=== PATIENT | female | born 1995 | race Caucasian/White ===

== ENCOUNTER 2019-05-12 09:43 | Emergency (ER) | payer OTHER, BC ==
[~2019-05-12] VITALS: Ht 149.9 cm; Wt 59.0 kg
--- NOTE | 2019-05-12 09:54 | NUR ---
Patient ambulated to bed 9. RN evaluating patient at bedside.
[2019-05-12 09:55] VITALS: BP 222/127
[2019-05-12 10:00] VITALS: BP 131/85
--- NOTE | 2019-05-12 10:00 | NUR ---
bib self. aao x4 c/o sudden onset of calf pain---right calf last night. no swelling, no redness to right calf. pt denies pain at this time. steady gait. denies being on the plane. pt denies n/v, sob. er to evaluate pt.
--- NOTE | 2019-05-12 10:41 | NUR ---
Dr. Mchugh evaluating patient at bedside.
[2019-05-12] MEDS ORDERED: IBUPROFEN 600 MG TAB PO ONE (10:45)
[2019-05-12] MEDS ORDERED: NACL 0.9% 1,000 ML IV ONE (10:45)
--- NOTE | 2019-05-12 10:45 | NUR ---
PT REFUSED MEDICATIONS
[2019-05-12 11:00] VITALS: BP 129/84
--- NOTE | 2019-05-12 11:00 | NUR ---
PT WANTS TO LEAVE AMA. DR GARCIA MADE AWARE
--- NOTE | 2019-05-12 11:02 | NUR ---
PT SIGNED AMA FORM. PT VERBALIZED UNDERSTANDING OF RISK. PT STATES " I DON'T HAVE TIME FOR THIS"
--- NOTE | 2019-05-12 11:02 | NUR ---
Patient does not wish to proceed with medical care recommended by Dr Mchugh. Patient given information related to possible complications, up to and including , which could occur as a result of leaving hospital at this time. Patient verbalizes understanding of risks involved leaving against medical advice. Patient has signed AMA form.
== END 2019-05-12 10:59 | disposition left against medical advice (07) ==
LOC: MED 09:43
DX: M79.662 Pain in left lower leg (principal); M79.661 Pain in right lower leg; Z88.0 Allergy status to penicillin
CPT/HCPCS: 81002; 81025; 99282